=== PATIENT | male | born 1970 | race Caucasian/White ===

== ENCOUNTER 2016-10-26 13:08 | Emergency (ER) | payer OTHER ==
[~2016-10-26] VITALS: Ht 175.3 cm; Wt 87.8 kg
[~2016-10-26 13:08] MED LIST: MEDR4PAK3 PO
[2016-10-26 13:12] VITALS: BP 120/88; PULSE 94; RESP 16; TEMP 98.1; O2SAT 96
[2016-10-26] MEDS ORDERED: CIPR-9 PO (13:51)
[2016-10-26] MEDS ORDERED: VENTAER INH (13:51)
--- NOTE | 2016-10-26 13:59 | PD ---
HPI Chief Complaint: Abdominal Pain Time Seen by Provider: 13:35 Travel History International Travel<30 days: No Contact w/Intl Traveler<30days: No Traveled to known affect area: No History of Present Illness HPI This patient complains of diarrhea. Started 10 days ago. When it started he did have low-grade temp and it was 100.4 when he checked it. He also had a bit of bloody mucus with his stool. Both the blood and stool and fever have resolved and for the last 7 days he's had liquid runny diarrhea. He is not having abdominal pain of significance. He does have occasional bloating or gassy sensations. No nausea or vomiting. He is eating well. Symptom severity is moderate. PFSH Past Medical History Hx Anticoagulant Therapy: No Diabetes: No Diminished Hearing: No Kidney Stones: Yes Tetanus Vaccination: Unknown Influenza Vaccination: No Past Surgical History AICD: No Joint Replacement: No Pacemaker: No Other Surgery: Yes (LITHOTRIPSY, RIGHT HAND SX) Social History Alcohol Use: Yes (BEER/WINE OCCASIONALLY) Tobacco Use: Yes (< 1/4 PPD) Substance Use: No Allergies-Medications (Allergen,Severity, Reaction): Coded Allergies: No Known Allergies (Verified , 10/26/16) Reported Meds & Prescriptions Reported Meds & Active Scripts Active Ventolin Hfa 18 GM Inh (Albuterol Sulfate) 90 Mcg/Act Aer 1 Puff INH Q4H PRN Cipro (Ciprofloxacin HCl) 500 Mg Tab 500 Mg PO BID Review of Systems General / Constitutional: No: Fever HENT: No: Headaches Cardiovascular: No: Chest Pain or Discomfort Respiratory: No: Cough Gastrointestinal: Positive: Diarrhea, No: Nausea Physical Exam Narrative GENERAL: Well-nourished, well-developed patient in no apparent distress. SKIN: Warm and dry. HEAD: Atraumatic. Normocephalic. EYES: Pupils equal and round. No scleral icterus. No injection or drainage. ENT: No nasal bleeding or discharge. Mucous membranes pink and moist. NECK: Trachea midline. No JVD. CARDIOVASCULAR: Regular rate and rhythm. No murmur appreciated. RESPIRATORY: No accessory muscle use. Clear to auscultation. Breath sounds equal bilaterally. GASTROINTESTINAL: Abdomen soft, non-tender, nondistended. Hepatic and splenic margins not palpable. MUSCULOSKELETAL: No obvious deformities. No clubbing. No cyanosis. No edema. NEUROLOGICAL: Awake and alert. No obvious cranial nerve deficits. Motor grossly within normal limits. Normal speech. PSYCHIATRIC: Appropriate mood and affect; insight and judgment normal. Data Data Last Documented VS Vital Signs Date Time Temp Pulse Resp B/P Pulse Ox O2 Delivery O2 Flow Rate FiO2 10/26/16 13:12 98.1 94 16 120/88 96 MDM Medical Decision Making Medical Screen Exam Complete: Yes Emergency Medical Condition: Yes Medical Record Reviewed: Yes Differential Diagnosis Infectious colitis, inflammatory colitis, flu syndrome, food poisoning Narrative Course I have reviewed the patient's electronic medical record. Patient has a normal exam and normal vital signs. He looks well-hydrated and euvolemic His abdomen is soft and benign and nontender. We discussed options. He would like to try something for treatment. We'll give him empirically one week of Cipro. He asked for refill of albuterol inhaler which I have provided. Recommend GI follow-up given the length, 10 days,of this event Diagnosis Primary Impression: Diarrhea of presumed infectious origin Additional Instructions: The patient was advised to follow up with their physician and return if they worsen. Med/Other Pt SpecificInfo: Prescription(s) given Scripts Albuterol 18 GM Inh (Ventolin Hfa 18 GM Inh)90 Mcg/Act Aer1 Puff INH Q4H PRN ( SHORTNESS OF BREATH) #1 INHALER Ref 0 Prov:Dashawn Pressley MD 10/26/16 Ciprofloxacin (Cipro)500 Mg [id number] Mg PO BID #14 TAB Ref 0 Prov:Dashawn Pressley MD 10/26/16 Disposition: 01 DISCHARGE HOME Condition: Stable Dashawn Pressley MD Oct 26, 2016 13:59
== END 2016-10-26 14:24 | disposition home or self-care (01) ==
LOC: PHED 13:08
DX: R19.7 Diarrhea, unspecified (principal); Z87.442 Personal history of urinary calculi; F17.210 Nicotine dependence, cigarettes, uncomplicated
CPT/HCPCS: 99283

== ENCOUNTER 2017-05-03 12:59 | Inpatient (IN) | payer OTHER ==
[~2017-05-03] VITALS: Ht 175.3 cm; Wt 90.7 kg
[~2017-05-03 12:59] MED LIST changes: +CIPR-9 PO; -MEDR4PAK3 PO; +VENTAER INH
[2017-05-03 13:01] VITALS: BP 146/82; PULSE 113; RESP 20; TEMP 99; O2SAT 97
[2017-05-03] MEDS ORDERED: BACT800T5 PO (13:52)
[2017-05-03] MEDS ORDERED: PRED50 PO (13:52)
[2017-05-03] MEDS ORDERED: PIPERACIL-TAZO 3.375 GM PREMIX 50 ML IV ONE (14:00)
[2017-05-03] MEDS ORDERED: VANCOMYCIN INJ 1,000 MG in SODIUM CHLOR 0.9% 250 ML INJ 250 ML IV ONE (14:00)
[2017-05-03] MEDS ORDERED: ONDANSETRON HCL 4 MG/2 ML VIAL IV PUSH ONE (14:00)
[2017-05-03] MEDS ORDERED: MORPHINE SULFATE 4 MG/ML INJ IV PUSH ONE (14:00)
--- NOTE | 2017-05-03 14:14 | PD ---
HPI Chief Complaint: Lump, Cyst, Hernia Time Seen by Provider: 13:43 Travel History International Travel<30 days: No Contact w/Intl Traveler<30days: No Traveled to known affect area: No History of Present Illness HPI 46-year-old male complains of painful lump on the right buttock. Patient states that it started with a small painful lumps in the right buttock 6 days ago. Patient states that he has increasing pain and swelling since then. Patient states that the pain and swelling spreading to the scrotum. Patient states that he has intermittent fever chills for the past week. Temperature was up to 101 at home. Patient had some leftover antibiotic Bactrim that he's had been taking it for the past 3 days. Patient also was taking prednisone also. Patient has history of asthma and uses albuterol once in a while. Patient denies any other medical problem. On a scale of 1-10 the pain is a 10. PFSH Past Medical History Hx Anticoagulant Therapy: No Diabetes: No Diminished Hearing: No Kidney Stones: Yes Past Surgical History AICD: No Joint Replacement: No Pacemaker: No Other Surgery: Yes (LITHOTRIPSY, RIGHT HAND SX) Social History Alcohol Use: Yes (BEER/WINE OCCASIONALLY) Tobacco Use: Yes (< 1/4 PPD) Substance Use: No Allergies-Medications (Allergen,Severity, Reaction): Coded Allergies: No Known Allergies (Verified , 05/03/17) Reported Meds & Prescriptions Reported Meds & Active Scripts Active Ventolin Hfa 18 GM Inh (Albuterol Sulfate) 90 Mcg/Act Aer 1 Puff INH Q4H PRN Reported Prednisone 50 Mg Tab 60 Mg PO DAILY Bactrim DS (Sulfamethoxazole-Trimethoprim) 800-160 Mg Tab 1 Tab PO TID Review of Systems General / Constitutional: Positive: Fever, Chills Eyes: No: Visual changes HENT: No: Headaches Cardiovascular: No: Chest Pain or Discomfort Respiratory: No: Shortness of Breath Gastrointestinal: No: Abdominal Pain Genitourinary: No: Dysuria Musculoskeletal: No: Pain Skin: No Rash Neurologic: No: Weakness Psychiatric: No: Depression Endocrine: No: Polydipsia Hematologic/Lymphatic: No: Easy Bruising Physical Exam Narrative GENERAL: Well-nourished, well-developed patient. SKIN: Focused skin assessment warm/dry. HEAD: Normocephalic. EYES: No scleral icterus. No injection or drainage. NECK: Supple, trachea midline. No JVD or lymphadenopathy. CARDIOVASCULAR: Regular rate and rhythm without murmurs, gallops, or rubs. RESPIRATORY: Breath sounds equal bilaterally. No accessory muscle use. GASTROINTESTINAL: Abdomen soft, non-tender, nondistended. MUSCULOSKELETAL: No cyanosis, or edema. BACK: Nontender without obvious deformity. No CVA tenderness. Patient has an area redness swelling induration left buttock area approaching the rectum area and involving the perineal area. No discharge noted. The scrotum is without swelling or tenderness. No tenderness palpation the testicle. Data Data Last Documented VS Vital Signs Date Time Temp Pulse Resp B/P Pulse Ox O2 Delivery O2 Flow Rate FiO2 05/03/17 16:19 114 18 143/75 97 Room Air 05/03/17 13:01 99.0 Orders Electrocardiogram (05/03/17 13:49) Complete Blood Count With Diff (05/03/17 13:49) Comprehensive Metabolic Panel (05/03/17 13:49) Prothrombin Time / Inr (Pt) (05/03/17 13:49) Act Partial Throm Time (Ptt) (05/03/17 13:49) Blood Culture (05/03/17 13:49) Urinalysis - C+S If Indicated (05/03/17 13:49) Chest, Single Ap (05/03/17 13:49) Iv Access Insert/Monitor (05/03/17 13:49) Ecg Monitoring (05/03/17 13:49) Oximetry (05/03/17 13:49) Sodium Chlor 0.9% 1000 Ml Inj (Ns 1000 M (05/03/17 14:00) Piperacil-Tazo 3.375 Gm Premix (Zosyn 3. (05/03/17 14:00) Vancomycin Inj (Vancomycin Inj) (05/03/17 14:00) Ct Pelvis W Iv Contrast(Rout) (05/03/17 ) Morphine Inj (Morphine Inj) (05/03/17 14:00) Ondansetron Inj (Zofran Inj) (05/03/17 14:00) Hydromorphone Pf Inj (Dilaudid Pf Inj) (05/03/17 16:00) Iohexol 350 Inj (Omnipaque 350 Inj) (05/03/17 16:16) Labs Laboratory Tests Test 05/03/17 14:30 White Blood Count 16.2 TH/MM3 Red Blood Count 4.75 MIL/MM3 Hemoglobin 14.1 GM/DL Hematocrit 41.9 % Mean Corpuscular Volume 88.2 FL Mean Corpuscular Hemoglobin 29.8 PG Mean Corpuscular Hemoglobin 33.7 % Concent Red Cell Distribution Width 12.6 % Platelet Count 297 TH/MM3 Mean Platelet Volume 7.9 FL Neutrophils (%) (Auto) 74.7 % Lymphocytes (%) (Auto) 12.1 % Monocytes (%) (Auto) 12.1 % Eosinophils (%) (Auto) 0.8 % Basophils (%) (Auto) 0.3 % Neutrophils # (Auto) 12.1 TH/MM3 Lymphocytes # (Auto) 2.0 TH/MM3 Monocytes # (Auto) 2.0 TH/MM3 Eosinophils # (Auto) 0.1 TH/MM3 Basophils # (Auto) 0.0 TH/MM3 CBC Comment DIFF FINAL Differential Comment Prothrombin Time 10.3 SEC Prothromb Time International 0.9 RATIO Ratio Activated Partial 28.3 SEC Thromboplast Time Sodium Level 139 MEQ/L Potassium Level 3.6 MEQ/L Chloride Level 105 MEQ/L Carbon Dioxide Level 25.9 MEQ/L Anion Gap 8 MEQ/L Blood Urea Nitrogen 15 MG/DL Creatinine 1.30 MG/DL Estimat Glomerular Filtration 60 ML/MIN Rate Random Glucose 85 MG/DL Calcium Level 9.6 MG/DL Total Bilirubin 0.4 MG/DL Aspartate Amino Transf 40 U/L (AST/SGOT) Alanine Aminotransferase 77 U/L (ALT/SGPT) Alkaline Phosphatase 105 U/L Total Protein 7.9 GM/DL Albumin 3.6 GM/DL [facility] Medical Decision Making Medical Screen Exam Complete: Yes Emergency Medical Condition: Yes Interpretation(s) Last Impressions Chest X-Ray 05/03/17 1349 Signed Impressions: Service Date/Time: Wednesday, May 03, 2017 13:58 - CONCLUSION: 1. No infiltrate. 2. Small nodule right upper lung. CT chest recommended as outpatient. Ethan Murry MD Pelvis CT 05/03/17 0000 Signed Impressions: Service Date/Time: Wednesday, May 03, 2017 15:40 - CONCLUSION: Abnormal inflammatory changes and skin thickening along the right gluteal cleft and in the adjacent subcutaneous fat of the perineum. No drainable fluid collection is present. The inflammatory changes extend towards the anus but no definite connection is identified. Chepe Cormier MD 1620 p.m. CBC WBC 16.2. 74 neutrophil. CMP within normal limit. Differential Diagnosis Differential diagnosis including cellulitis, abscess, Rigo gangrene. Narrative Course 46-year-old male with redness swelling tenderness left buttock with approaching peroneal area. Normal saline solution 1 25 cc an hour. Vancomycin 1 g IV. Zosyn 3.375 g IV given. Diagnosis Primary Impression: Cellulitis Qualified Code: L03.317 - Cellulitis of buttock Admitting Information Admitting Physician Requests: Admit Facundo Ruano MD May 03, 2017 14:14 Facundo Ruano MD May 03, 2017 14:14
--- NOTE | 2017-05-03 14:32 | RADRPT ---
EXAM DATE/TIME: 05/03/2017 13:58 [facility] COMPARISON: No previous studies available for comparison. INDICATIONS : Fever, abscess on buttock x 1 week. MEDICAL HISTORY : None. SURGICAL HISTORY : None. ENCOUNTER: Initial ACUITY: 3 days PAIN SCORE: 0/10 LOCATION: Bilateral chest FINDINGS: A single view of the chest demonstrates the lungs to be symmetrically aerated without evidence of mas s, infiltrate or effusion. Small nodule right upper lung. The cardiomediastinal contours are unremark able. Osseous structures are intact. CONCLUSION: 1. No infiltrate. 2. Small nodule right upper lung. CT chest recommended as outpatient. Ethan Murry MD on May 03, 2017 at 14:29 Board Certified Radiologist. This report was verified electronically.
[2017-05-03] MEDS: SODIUM CHLOR 0.9% 1000 ML INJ 1,000 ML IV SCH (14:36)
[2017-05-03 15:08] LABS: APTT (PATIENT) 28.3 SEC (24.3-30.1); INTERNATIONAL NORMALIZED RATIO 0.9 RATIO; PROTHROMBIN TIME - PATIENT 10.3 SEC (9.8-11.6)
[2017-05-03 15:15] VITALS: O2SAT 98
[2017-05-03 15:19] LABS: AUTOMATED NEUTROPHIL # 12.1 TH/MM3 (1.8-7.7); BASOPHIL % 0.3 % (0.0-2.0); EOSINOPHIL # 0.1 TH/MM3 (0-0.4); EOSINOPHIL % 0.8 % (0.0-4.0); HEMATOCRIT 41.9 % (39.0-51.0); LYMPH % 12.1 % (9.0-44.0); MEAN CELL VOLUME 88.2 FL (80.0-100.0); MEAN CORPUSCULAR HEMOGLOBIN 29.8 PG (27.0-34.0); MEAN CORPUSCULAR HGB CONC 33.7 % (32.0-36.0); MONO % 12.1 % (0.0-8.0); NEUT % 74.7 % (16.0-70.0); PLATELET COUNT 297 TH/MM3 (150-450); RED BLOOD COUNT 4.75 MIL/MM3 (4.50-5.90); RED CELL DISTRIBUTION WIDTH 12.6 % (11.6-17.2); WHITE BLOOD COUNT 16.2 TH/MM3 (4.0-11.0)
[2017-05-03 15:20] LABS: HEMO FLAGS DIFF FINAL
[2017-05-03 15:31] LABS: CHLORIDE 105 MEQ/L (98-107); POTASSIUM 3.6 MEQ/L (3.5-5.1); SODIUM (NA) 139 MEQ/L (136-145)
[2017-05-03 15:35] LABS: ANION GAP 8 MEQ/L (5-15); BICARBONATE 25.9 MEQ/L (21.0-32.0); BLOOD UREA NITROGEN 15 MG/DL (7-18)
[2017-05-03 15:38] LABS: ALT (GPT) 77 U/L (12-78); AST (GOT) 40 U/L (15-37); GLOMERULAR FILTRATION RATE 60 ML/MIN (>89)
[2017-05-03 15:40] LABS: TOTAL BILIRUBIN ADULT 0.4 MG/DL (0.2-1.0)
[2017-05-03 15:41] LABS: ALKALINE PHOSPHATASE 105 U/L (45-117)
[2017-05-03] MEDS ORDERED: HYDROmorphone HCL PF 1 MG/ML VIAL IV PUSH ONE (16:00)
--- NOTE | 2017-05-03 16:10 | RADRPT ---
EXAM DATE/TIME: 05/03/2017 15:40 [facility] COMPARISON: No previous studies available for comparison. INDICATIONS : Pain and swelling right buttock. IV CONTRAST: 85 cc Omnipaque 350 (iohexol) IV ORAL CONTRAST: No oral contrast ingested. RADIATION DOSE: 11.95 CTDIvol (mGy) MEDICAL HISTORY : Renal calculi. Asthma. SURGICAL HISTORY : Lithotripsy. ENCOUNTER: Initial ACUITY: 4 - 6 days PAIN SCALE: 10/10 LOCATION: Right buttock TECHNIQUE: Volumetric scanning of the pelvis was performed. Using automated exposure control and adjustment of t he mA and/or kV according to patient size, radiation dose was kept as low as reasonably achievable to obtain optimal diagnostic quality images. DICOM format image data is available electronically for review and comparison. FINDINGS: BOWEL/MESENTERY: The visualized small and large bowel demonstrate no acute abnormality. There is no free fluid. BLADDER: There is no wall thickening or mass. RETROPERITONEUM: There is no aneurysm or lymphadenopathy. REPRODUCTIVE: Within normal limits. INGUINAL: There is no lymphadenopathy or hernia. MUSCULOSKELETAL: No acute abnormality is identified. OTHER: There are inflammatory changes along the right medial gluteal cleft and in the adjacent subcutaneous fat extending anteriorly along the perineum it extends near the anus but no definite connection is se en. Ischiorectal fossa fat is within normal limits. No fluid collection is identified. CONCLUSION: Abnormal inflammatory changes and skin thickening along the right gluteal cleft and in the adjacent s ubcutaneous fat of the perineum. No drainable fluid collection is present. The inflammatory changes e xtend towards the anus but no definite connection is identified. Chepe Cormier MD on May 03, 2017 at 16:05 Board Certified Radiologist. This report was verified electronically.
[2017-05-03] MEDS ORDERED: IOHEXOL 350 MG/ML 10 ML VIAL (for RAD DIAG) IV ONE (16:16)
[2017-05-03 16:19] VITALS: BP 143/75; PULSE 114; RESP 18; O2SAT 97
[2017-05-03] MEDS ORDERED: ACETAMINOPHEN 325 MG TAB PO PRN (16:45)
[2017-05-03] MEDS ORDERED: ONDANSETRON HCL 4 MG/2 ML VIAL IV PUSH PRN (16:45)
[2017-05-03 16:46] VITALS: BP 142/86; PULSE 114; RESP 18; TEMP 100.2; O2SAT 94
--- NOTE | 2017-05-03 16:57 | HHI.HP ---
[facility] Physician Coleman Xie M.D. Admission Diagnosis right buttock cellulitis Diagnoses: (1) Cellulitis of buttock, right Diagnosis: Principal Chief Complaint: pain and swelling of the right buttock Travel History International Travel<30 Days: No Contact w/Intl Traveler <30 Da: No Traveled to Known Affected Are: No Sepsis Criteria SIRS Criteria (2 or more): Heart rate over 90, WBC > 97235, < 4000 or > 10% bands Sepsis Criteria (SIRS+source): Infect source susp/known Criteria Outcome: Meets sepsis criteria History of Present Illness patient is a 46 y/o male with no significant past medical history other than occasional folliculitis presented to ER with pain and swelling of the right buttock. he says that it started a small bump few days ago. then it gradually started to get worse. he says that he had ' some antibiotic left over' that he he took for a couple of days with no significant improvement. he reports a fever of 101 at home along with some chills and sweats. he says that he tried to squeeze the area and ' he got a little of blood and whitish fluid out' a couple of days ago. the pain to the area is moderate in intensity but improved with the pain medications that he received in ER. Review of Systems Constitutional: COMPLAINS OF: Fever, Chills, Night Sweats, DENIES: Weight loss Eyes: DENIES: Blurred vision, Diplopia, Vision loss, Double Vision Ears, nose, mouth, throat: DENIES: Tinnitus, Vertigo, Throat pain, Epistaxis Respiratory: DENIES: Apneas, Cough, Snoring, Wheezing, Hemoptysis, Sputum production, Shortness of breath Cardiovascular: DENIES: Chest pain, Palpitations, Syncope, Dyspnea on Exertion , PND, Lower Extremity Edema, Orthopnea, Claudication Gastrointestinal: DENIES: Abdominal pain, Black stools, Bloody stools, Constipation, Diarrhea, Nausea, Vomiting, Difficulty Swallowing, Anorexia Genitourinary: DENIES: Urinary frequency, Urgency, Hematuria, Dysuria Musculoskeletal: DENIES: Joint pain, Muscle aches, Stiffness, Joint Swelling Integumentary: DENIES: Rash Neurologic: DENIES: Abnormal gait, Headache, Localized weakness, Paresthesias, Seizures, Speech Problems, Tremor, Poor Balance Psychiatric: DENIES: Anxiety, Confusion, Mood changes, Depression, Hallucinations, Agitation, Suicidal Ideation, Homicidal Ideation, Delusions redness and swelling of the right buttock. Past Family Social History Past Medical History not significant. Past Surgical History surgery on the right hand. Reported Medications none reported as a regular basis. Allergies: Coded Allergies: No Known Allergies (Verified , 05/03/17) Active Ordered Medications Current Medications Sodium Chloride 1,000 ml @ 125 mls/hr Q8H IV Last administered on 05/03/17 14 :36; Start 05/03/17 at 14:00 Piperacillin Sod/ Tazobactam Sod 50 ml @ 100 mls/hr ONCE ONCE IV Last administered on 05/03/17 14:37; Start 05/03/17 at 14:00; Stop 05/03/17 at 14:29 ; Status DC Vancomycin HCl/ Sodium Chloride (Vancomycin Inj/ NS 250 ml Inj) 250 ml @ 250 mls/hr ONCE ONCE IV ; Start 05/03/17 at 14:00; Stop 05/03/17 at 14:59; Status DC Morphine Sulfate (Morphine Inj) 2 mg ONCE ONCE IV PUSH Last administered on 14:37; Start 05/03/17 at 14:00; Stop 05/03/17 at 14:01; Status DC Ondansetron HCl (Zofran Inj) 4 mg ONCE ONCE IV PUSH Last administered on 14:36; Start 05/03/17 at 14:00; Stop 05/03/17 at 14:01; Status DC Hydromorphone HCl (Dilaudid Pf Inj) 1 mg ONCE ONCE IV PUSH Last administered on 05/03/17 16:16; Start 05/03/17 at 16:00; Stop 05/03/17 at 16:01; Status DC Iohexol (Omnipaque 350 Inj) 85 ml STK-MED ONCE IV Last administered on 16:16; Start 05/03/17 at 16:16; Stop 05/03/17 at 16:17; Status DC Family History not relevant to this admission. Social History smokes and drinks occasionally. Physical Exam Vital Signs Vital Signs Date Time Temp Pulse Resp B/P Pulse Ox O2 Delivery O2 Flow Rate FiO2 05/03/17 16:19 114 18 143/75 97 Room Air 05/03/17 15:15 98 Room Air 05/03/17 13:01 99.0 113 20 146/82 97 Physical Exam GENERAL: This is a well-nourished, well-developed patient, in no apparent distress. SKIN: redness/swelling noted over the right buttock with some extension to the right medical thigh HEAD: Atraumatic. Normocephalic. No temporal or scalp tenderness. EYES: Pupils equal round and reactive. Extraocular motions intact. No scleral icterus. No injection or drainage. ENT: Nose without bleeding, purulent drainage or septal hematoma. Throat without erythema, tonsillar hypertrophy or exudate. Uvula midline. Airway patent. NECK: Trachea midline. No JVD or lymphadenopathy. Supple, nontender, no meningeal signs. CARDIOVASCULAR: Regular rate and rhythm without murmurs, gallops, or rubs. RESPIRATORY: Clear to auscultation. Breath sounds equal bilaterally. No wheezes , rales, or rhonchi. GASTROINTESTINAL: Abdomen soft, non-tender, nondistended. No hepato-splenomegaly , or palpable masses. No guarding. MUSCULOSKELETAL: Extremities with no pedal edema. NEUROLOGICAL: Awake and alert. Cranial nerves II through XII intact. Motor and sensory grossly within normal limits. Five out of 5 muscle strength in all muscle groups. Normal speech. Laboratory Laboratory Tests Test 05/03/17 14:30 White Blood Count 16.2 Red Blood Count 4.75 Hemoglobin 14.1 Hematocrit 41.9 Mean Corpuscular Volume 88.2 Mean Corpuscular Hemoglobin 29.8 Mean Corpuscular Hemoglobin 33.7 Concent Red Cell Distribution Width 12.6 Platelet Count 297 Mean Platelet Volume 7.9 Neutrophils (%) (Auto) 74.7 Lymphocytes (%) (Auto) 12.1 Monocytes (%) (Auto) 12.1 Eosinophils (%) (Auto) 0.8 Basophils (%) (Auto) 0.3 Neutrophils # (Auto) 12.1 Lymphocytes # (Auto) 2.0 Monocytes # (Auto) 2.0 Eosinophils # (Auto) 0.1 Basophils # (Auto) 0.0 CBC Comment DIFF FINAL Differential Comment Prothrombin Time 10.3 Prothromb Time International 0.9 Ratio Activated Partial 28.3 Thromboplast Time Sodium Level 139 Potassium Level 3.6 Chloride Level 105 Carbon Dioxide Level 25.9 Anion Gap 8 Blood Urea Nitrogen 15 Creatinine 1.30 Estimat Glomerular Filtration 60 Rate Random Glucose 85 Calcium Level 9.6 Total Bilirubin 0.4 Aspartate Amino Transf 40 (AST/SGOT) Alanine Aminotransferase 77 (ALT/SGPT) Alkaline Phosphatase 105 Total Protein 7.9 Albumin 3.6 Date/Time Procedure Status Source Growth 05/03/17 14:30 Aerobic Blood Culture Received Blood Peripheral Pending 05/03/17 14:30 Anaerobic Blood Culture Received Blood Peripheral Pending Result Diagram: 05/03/17 1430 05/03/17 1430 Imaging Last Impressions Chest X-Ray 05/03/17 1349 Signed Impressions: Service Date/Time: Wednesday, May 03, 2017 13:58 - CONCLUSION: 1. No infiltrate. 2. Small nodule right upper lung. CT chest recommended as outpatient. Ethan Murry MD Pelvis CT 05/03/17 0000 Signed Impressions: Service Date/Time: Wednesday, May 03, 2017 15:40 - CONCLUSION: Abnormal inflammatory changes and skin thickening along the right gluteal cleft and in the adjacent subcutaneous fat of the perineum. No drainable fluid collection is present. The inflammatory changes extend towards the anus but no definite connection is identified. Chepe Cormier MD Assessment and Plan Assessment and Plan A/P -sepsis due to right buttock cellulitis/abscess continue with broad spectrum IV antibiotics- follow the blood cultures- continue with pain control- consult general surgery -pulmonary nodule- f/u as outpatient- d/w the patient. Discussed Condition With ER physician and the patient. Physician Certification 2 Midnight Certification Type: Admission for Inpatient Services Order for Inpatient Services The services are ordered in accordance with Medicare regulations or non- Medicare payer requirements, as applicable. In the case of services not specified as inpatient-only, they are appropriately provided as inpatient services in accordance with the 2-midnight benchmark. Estimated LOS (days): 2 days is the estimated time the patient will need to remain in the hospital, assuming treatment plan goals are met and no additional complications. Post-Hospital Plan: Home Colby Brenner MD May 03, 2017 16:57
[2017-05-03] MEDS ORDERED: Vancomycin Consult Pharmacy 1 EA OTHER SCH (17:00)
[2017-05-03 17:51] LABS: BLOOD, URINE TRACE (NEG); GLUCOSE,URINE NEG (NEG); KETONE, URINE NEG (NEG); NITRITE,URINE NEG (NEG); PH, URINE 6.5 (5.0-8.5)
[2017-05-03 18:07] VITALS: BP 138/86; PULSE 77; RESP 18; TEMP 97.8; O2SAT 99
[2017-05-03 18:12] LABS: URINE COLOR YELLOW (YELLW/STRAW)
[2017-05-03 18:13] LABS: COMMENT (UR) CULT NOT INDICATED; CULTURE IF INDICATED CULT NOT INDICATED; MUCUS URINE FEW /lpf (OCC); RBC, URINE 0-3 /hpf (0-3); SQUAMOUS EPITHELIAL CELL URINE 0-5 /hpf (0-5); WBC, URINE 0-2 /hpf (0-5)
[2017-05-03] MEDS: ACETAMINOPHEN/HYDROcodone 325 MG/5 MG TAB PO PRN ×2 (18:25→22:04)
--- NOTE | 2017-05-03 19:56 | MB ---
cc: SHANKAR AUGUST M.D., JOSHUA R. M.D. DATE OF CONSULTATION 05/03/2017 CONSULTATION Cellulitis in the gluteal region. HISTORY This is a pleasant 46-year-old gentleman who has had about a 3 to 4 day history of some cellulitic response in the gluteal region. He was given some Bactrim and failed outpatient therapy. He came into the emergency room for evaluation. The CT scan was done which showed cellulitic response. No fluid collection. No abscess. Medical team wanted surgery on standby just in case he developed an abscess. PAST MEDICAL HISTORY Significant for kidney stones in the past. He had some hand surgery. No abdominal surgery. He had a colonoscopy recently by Dr. Adams. No cardiac or respiratory problems. He does have problems with hidradenitis more on the right axillary region than the left. He has been treated numerous times for this with antibiotics. ALLERGIES NO KNOWN DRUG ALLERGIES. MEDICATIONS Outpatient just include: 1. Bactrim. 2. He was given some Ventolin inhaler. 3. He was given a prednisone taper as an outpatient as well. PHYSICAL EXAMINATION GENERAL: He is an alert, pleasant gentleman sitting comfortably in the bed with an IV in place. NECK: Supple. CHEST: Clear. HEART: Regular rate. ABDOMEN: Thin, soft. AXILLARY: He has scars in both his axillary regions, more on the right than the left consistent with hidradenitis but not too bad. EXTREMITIES: Moves extremities well. His upper extremities limited from his II. His right gluteal area is cellulitic with a slight tenderness. I do not feel fluctuance. Does not appear to go into the scrotum, is more of the medial aspect of the gluteal region. The most tenderness is quite away from the rectum. This does not appear to be a perirectal abscess. LABORATORY DATA He has complete metabolic profile, is all normal. White count of 16, H&H of 14, 41. Coags normal. Urinalysis essentially clear. IMAGING STUDIES Chest x-ray showed a nodule. He said he had a chest x-ray as an outpatient previously for his hand surgery. Will see if we can have these compared. Radiologist recommended a CT scan as an outpatient. He will follow up with Dr. Xie with this. CT abdomen and pelvis shows inflammatory changes with skin thickening right gluteal area without any fluid present. ASSESSMENT A 46-year-old gentleman with history of hidradenitis, now has some inflammatory changes in the gluteal region. No evidence of abscess at this time. PLAN At this time I agree with the antibiotic therapy. Will follow him clinically at this point. He just recently had a colonoscopy. Lung nodule needs to be followed up as an outpatient. He says he will contact his primary care, Dr. Xie. Shankar August MD JDB/EO /6:26 PM /7:46 PM
[2017-05-03 20:00] VITALS: BP 130/74; PULSE 102; RESP 20; TEMP 99; O2SAT 96
[2017-05-03] MEDS: PIPERACIL-TAZO 3.375 GM PREMIX 50 ML IV SCH (22:04)
[2017-05-04] VITALS: BP 120/69; PULSE 96; RESP 20; TEMP 99.1; O2SAT 96
[2017-05-04] MEDS: PIPERACIL-TAZO 3.375 GM PREMIX 50 ML IV SCH ×4 (01:50→20:11)
[2017-05-04] MEDS: SODIUM CHLOR 0.9% 1000 ML INJ 1,000 ML IV SCH ×4 (01:50→22:42)
[2017-05-04] MEDS: ACETAMINOPHEN/HYDROcodone 325 MG/5 MG TAB PO PRN ×5 (03:56→20:11)
[2017-05-04] MEDS: VANCOMYCIN INJ 1,500 MG in SODIUM CHLORID 0.9% 500 ML INJ 500 ML IV SCH ×2 (03:57→22:50)
[2017-05-04 04:00] VITALS: BP 121/73; PULSE 100; RESP 20; TEMP 99.6; O2SAT 96
[2017-05-04 07:05] LABS: AUTOMATED NEUTROPHIL # 11.4 TH/MM3 (1.8-7.7); BASOPHIL # 0.1 TH/MM3 (0-0.2); BASOPHIL % 0.5 % (0.0-2.0); EOSINOPHIL # 0.3 TH/MM3 (0-0.4); EOSINOPHIL % 1.6 % (0.0-4.0); LYMPH % 12.3 % (9.0-44.0); MEAN CELL VOLUME 88.3 FL (80.0-100.0); MEAN CORPUSCULAR HEMOGLOBIN 30.7 PG (27.0-34.0); MEAN CORPUSCULAR HGB CONC 34.8 % (32.0-36.0); MONO % 13.4 % (0.0-8.0); NEUT % 72.2 % (16.0-70.0); PLATELET COUNT 238 TH/MM3 (150-450); RED BLOOD COUNT 4.08 MIL/MM3 (4.50-5.90); RED CELL DISTRIBUTION WIDTH 12.2 % (11.6-17.2); WHITE BLOOD COUNT 15.9 TH/MM3 (4.0-11.0)
[2017-05-04 07:11] LABS: HEMO FLAGS DIFF FINAL
[2017-05-04 08:00] VITALS: BP 119/87; PULSE 90; RESP 18; TEMP 98.2; O2SAT 96
--- NOTE | 2017-05-04 09:56 | HHI.PR ---
Subjective Remarks f/u; cellulitis/abscess of the right buttock in no acute distress, but uncomfortable with the pain. T max 100.2. Objective Vitals Vital Signs Date Time Temp Pulse Resp B/P Pulse Ox O2 Delivery O2 Flow Rate FiO2 05/04/17 08:00 98.2 90 18 119/87 96 05/04/17 04:00 99.6 100 20 121/73 96 05/04/17 00:00 99.1 96 20 120/69 96 05/03/17 20:00 99.0 102 20 130/74 96 05/03/17 19:25 18 05/03/17 18:07 97.8 77 18 138/86 99 05/03/17 16:46 100.2 114 18 142/86 94 Room Air 05/03/17 16:19 114 18 143/75 97 Room Air 05/03/17 15:15 98 Room Air 05/03/17 13:01 99.0 113 20 146/82 97 I/O 05/03/17 05/03/17 05/03/17 05/04/17 05/04/17 05/04/17 07:00 15:00 23:00 07:00 15:00 23:00 Intake Total 1900 ml 480 ml Output Total 700 ml 800 ml Balance 1200 ml -320 ml Intake Oral 1650 ml 480 ml IV Total 250 ml Output Urine Total 700 ml 800 ml # Voids 3 3 # Bowel Movements 0 0 Result Diagram: 05/04/17 0636 05/03/17 1430 Imaging Last Impressions Chest X-Ray 05/03/17 1349 Signed Impressions: Service Date/Time: Wednesday, May 03, 2017 13:58 - CONCLUSION: 1. No infiltrate. 2. Small nodule right upper lung. CT chest recommended as outpatient. Ethan Murry MD Pelvis CT 05/03/17 0000 Signed Impressions: Service Date/Time: Wednesday, May 03, 2017 15:40 - CONCLUSION: Abnormal inflammatory changes and skin thickening along the right gluteal cleft and in the adjacent subcutaneous fat of the perineum. No drainable fluid collection is present. The inflammatory changes extend towards the anus but no definite connection is identified. Chepe Cormier MD Objective Remarks GENERAL: This is a well-nourished, well-developed patient, in no apparent distress. CARDIOVASCULAR: Regular rate and regular rhythm without murmurs, gallops, or rubs. RESPIRATORY: Clear to auscultation. Breath sounds equal bilaterally. No wheezes , rales, or rhonchi. GASTROINTESTINAL: Abdomen soft, non-tender, nondistended. Normal, active bowel sounds MUSCULOSKELETAL: Extremities without clubbing, cyanosis, or edema. NEURO: Alert & Oriented x4 to person, place, time, situation. Moves all ext x4 skin; erythema/ tenderness with minimal oozing - right gluteal region Medications and IVs Current Medications Sodium Chloride 1,000 ml @ 125 mls/hr Q8H IV Last administered on 05/04/17 08 :41; Start 05/03/17 at 14:00 Piperacillin Sod/ Tazobactam Sod 50 ml @ 100 mls/hr ONCE ONCE IV Last administered on 05/03/17 14:37; Start 05/03/17 at 14:00; Stop 05/03/17 at 14:29 ; Status DC Vancomycin HCl/ Sodium Chloride (Vancomycin Inj/ NS 250 ml Inj) 250 ml @ 250 mls/hr ONCE ONCE IV Last administered on 05/03/17 16:44; Start 05/03/17 at 14 :00; Stop 05/03/17 at 14:59; Status DC Morphine Sulfate (Morphine Inj) 2 mg ONCE ONCE IV PUSH Last administered on 14:37; Start 05/03/17 at 14:00; Stop 05/03/17 at 14:01; Status DC Ondansetron HCl (Zofran Inj) 4 mg ONCE ONCE IV PUSH Last administered on 14:36; Start 05/03/17 at 14:00; Stop 05/03/17 at 14:01; Status DC Hydromorphone HCl (Dilaudid Pf Inj) 1 mg ONCE ONCE IV PUSH Last administered on 05/03/17 16:16; Start 05/03/17 at 16:00; Stop 05/03/17 at 16:01; Status DC Iohexol 85 ml 85 ml STK-MED ONCE IV Last administered on 05/03/17 16:16; Start 05/03/17 at 16:16; Stop 05/03/17 at 16:17; Status DC Pharmacy Profile Note 0 ml @ 0 mls/hr UNSCH OTHER ; Start 05/03/17 at 17:00 Piperacillin Sod/ Tazobactam Sod (Zosyn 3.375 Gm Premix) 50 ml @ 100 mls/hr Q6H IV Last administered on 05/04/17 01:50; Start 05/03/17 at 20:00 Acetaminophen (Tylenol) 650 mg Q4H PRN PO FEVER/ PAIN 1-3; Start 05/03/17 at 16 :45 Acetaminophen/ Hydrocodone Bitart ([place] 5-325 Mg) 1 tab Q4H PRN PO PAIN 4-6 Last administered on 05/03/17 18:25; Start 05/03/17 at 16:45 Acetaminophen/ Hydrocodone Bitart ([place] 5-325 Mg) 2 tab Q4H PRN PO PAIN 7-10 Last administered on 05/04/17 08:42; Start 05/03/17 at 16:45 Ondansetron HCl 4 mg 4 mg Q8HR PRN IV PUSH NAUSEA; Start 05/03/17 at 16:45 Vancomycin HCl/ Sodium Chloride (Vancomycin Inj/ NS 500 ml Inj) 515 ml @ 250 mls/hr Q18H IV Last administered on 05/04/17 03:57; Start 05/04/17 at 05:00 Miscellaneous Information SPECIFIC LAB TO BE DRAWN:VANCOMY... ONCE ONCE .XX ; Start 05/06/17 at 10:45; Stop 05/06/17 at 10:46 A/P Assessment and Plan A/P -sepsis due to right buttock cellulitis/abscess continue with broad spectrum IV antibiotics- follow the blood cultures- continue with pain control- general surgery consult appreciated. -pulmonary nodule- f/u as outpatient- d/w the patient. Colby Brenner MD May 04, 2017 09:56
[2017-05-04] MEDS: HYDROmorphone HCL PF 1 MG/ML VIAL IV PUSH PRN ×3 (10:53→22:49)
[2017-05-04 12:00] VITALS: BP 124/88; PULSE 92; RESP 18; TEMP 97.2; O2SAT 96
--- NOTE | 2017-05-04 12:29 | EKG ---
Date Performed: 05/03/2017 Time Performed: 14:13:10 PTAGE: 46 years EKG: Sinus rhythm NONSPECIFIC T-WAVE ABNORMALITY Since previous tracing, no significant change noted BORDERLINE ECG PREVIOUS TRACING : 05/18/2016 10.23 DOCTOR: Alfredo Vang Interpretating Date/Time 05/04/2017 12:24:20
[2017-05-04 16:00] VITALS: BP 138/90; PULSE 98; RESP 18; TEMP 98.4; O2SAT 100
--- NOTE | 2017-05-04 18:25 | HHI.PR ---
Subjective Subjective Notes Right buttock still quite painful Objective Vitals/I&O Vital Signs Date Time Temp Pulse Resp B/P Pulse Ox O2 Delivery O2 Flow Rate FiO2 05/04/17 16:11 18 05/04/17 16:00 98.4 98 138/90 100 05/03/17 16:46 Room Air Labs Laboratory Tests Test 05/04/17 06:36 White Blood Count 15.9 Red Blood Count 4.08 Hemoglobin 12.5 Hematocrit 36.0 Mean Corpuscular Volume 88.3 Mean Corpuscular Hemoglobin 30.7 Mean Corpuscular Hemoglobin 34.8 Concent Red Cell Distribution Width 12.2 Platelet Count 238 Mean Platelet Volume 7.7 Neutrophils (%) (Auto) 72.2 Lymphocytes (%) (Auto) 12.3 Monocytes (%) (Auto) 13.4 Eosinophils (%) (Auto) 1.6 Basophils (%) (Auto) 0.5 Neutrophils # (Auto) 11.4 Lymphocytes # (Auto) 2.0 Monocytes # (Auto) 2.1 Eosinophils # (Auto) 0.3 Basophils # (Auto) 0.1 CBC Comment DIFF FINAL Differential Comment Date/Time Procedure Status Source Growth 05/04/17 11:00 Gram Stain Received Wound Buttock Pending 05/04/17 11:00 Wound Culture Received Wound Buttock Pending 05/03/17 14:30 Aerobic Blood Culture - Preliminary Resulted Blood Peripheral NO GROWTH IN 1 DAY 05/03/17 14:30 Anaerobic Blood Culture - Preliminary Resulted Blood Peripheral NO GROWTH IN 1 DAY Narrative Exam Right buttock perirectal area erythematous and indurated; small area purulent drainage. A/P Assessment and Plan Perirectal abscess, partially spontaneously draining. Will open further at bedside; I discussed plan with patient, who is agreeable. I discussed risks, benefits, alternatives, and convalescence with patient. Rodriguez De Paz MD May 04, 2017 18:25
[2017-05-04] MEDS ORDERED: HYDROmorphone HCL PF 2 MG/ML VIAL IV PUSH ONE (18:30)
[2017-05-04 21:00] VITALS: BP 147/90; PULSE 89; RESP 18; TEMP 97.7; O2SAT 97
[2017-05-05] VITALS: BP 137/74; PULSE 95; RESP 16; TEMP 98.2; O2SAT 97
[2017-05-05] MEDS: PIPERACIL-TAZO 3.375 GM PREMIX 50 ML IV SCH ×4 (02:10→20:30)
[2017-05-05] MEDS: HYDROmorphone HCL PF 1 MG/ML VIAL IV PUSH PRN ×4 (02:17→20:34)
[2017-05-05] MEDS: SODIUM CHLOR 0.9% 1000 ML INJ 1,000 ML IV SCH ×3 (05:01→20:37)
[2017-05-05 06:33] LABS: HEMATOCRIT 37.3 % (39.0-51.0); MEAN CELL VOLUME 88.7 FL (80.0-100.0); MEAN CORPUSCULAR HEMOGLOBIN 29.8 PG (27.0-34.0); MEAN CORPUSCULAR HGB CONC 33.5 % (32.0-36.0); PLATELET COUNT 282 TH/MM3 (150-450); RED CELL DISTRIBUTION WIDTH 12.6 % (11.6-17.2); REVIEW FLAG FINAL; WHITE BLOOD COUNT 12.3 TH/MM3 (4.0-11.0)
[2017-05-05 08:00] VITALS: BP 121/82; PULSE 95; RESP 18; TEMP 99; O2SAT 96
--- NOTE | 2017-05-05 09:15 | HHI.PR ---
Subjective Remarks in no acute distress. although he says that ' there's not as much pressure ' still with severe pain to the right buttock. remains afebrile. Objective Vitals Vital Signs Date Time Temp Pulse Resp B/P Pulse Ox O2 Delivery O2 Flow Rate FiO2 05/05/17 04:00 05/05/17 00:00 98.2 95 16 137/74 97 05/04/17 21:00 97.7 89 18 147/90 97 05/04/17 18:13 18 05/04/17 16:11 18 05/04/17 16:00 98.4 98 18 138/90 100 05/04/17 13:52 18 05/04/17 12:00 97.2 92 18 124/88 96 I/O 05/04/17 05/04/17 05/04/17 05/05/17 05/05/17 05/05/17 06:59 14:59 22:59 06:59 14:59 22:59 Intake Total 480 ml 250 ml 2899 ml 3137 ml Output Total 800 ml 1650 ml 450 ml 2000 ml Balance -320 ml -1400 ml 2449 ml 1137 ml Intake Oral 480 ml 250 ml IV Total 2899 ml 3137 ml Output Urine Total 800 ml 1650 ml 450 ml 2000 ml # Voids 3 2 # Bowel Movements 0 0 0 Result Diagram: 05/05/17 0624 05/03/17 1430 Imaging Last Impressions Chest X-Ray 05/03/17 1349 Signed Impressions: Service Date/Time: Wednesday, May 03, 2017 13:58 - CONCLUSION: 1. No infiltrate. 2. Small nodule right upper lung. CT chest recommended as outpatient. Ethan Murry MD Pelvis CT 05/03/17 0000 Signed Impressions: Service Date/Time: Wednesday, May 03, 2017 15:40 - CONCLUSION: Abnormal inflammatory changes and skin thickening along the right gluteal cleft and in the adjacent subcutaneous fat of the perineum. No drainable fluid collection is present. The inflammatory changes extend towards the anus but no definite connection is identified. Chepe Cormier MD Objective Remarks GENERAL: This is a well-nourished, well-developed patient, in no apparent distress. CARDIOVASCULAR: Regular rate and regular rhythm without murmurs, gallops, or rubs. RESPIRATORY: Clear to auscultation. Breath sounds equal bilaterally. No wheezes , rales, or rhonchi. GASTROINTESTINAL: Abdomen soft, non-tender, nondistended. Normal, active bowel sounds MUSCULOSKELETAL: Extremities without clubbing, cyanosis, or edema. NEURO: Alert & Oriented x4 to person, place, time, situation. Moves all ext x4 skin; erythema/ tenderness with minimal oozing - right gluteal region Procedures abscess drainage at the bedside Medications and IVs Current Medications Sodium Chloride 1,000 ml @ 125 mls/hr Q8H IV Last administered on 05/05/17 05 :01; Start 05/03/17 at 14:00 Piperacillin Sod/ Tazobactam Sod 50 ml @ 100 mls/hr ONCE ONCE IV Last administered on 05/03/17 14:37; Start 05/03/17 at 14:00; Stop 05/03/17 at 14:29 ; Status DC Vancomycin HCl/ Sodium Chloride (Vancomycin Inj/ NS 250 ml Inj) 250 ml @ 250 mls/hr ONCE ONCE IV Last administered on 05/03/17 16:44; Start 05/03/17 at 14 :00; Stop 05/03/17 at 14:59; Status DC Morphine Sulfate (Morphine Inj) 2 mg ONCE ONCE IV PUSH Last administered on 14:37; Start 05/03/17 at 14:00; Stop 05/03/17 at 14:01; Status DC Ondansetron HCl (Zofran Inj) 4 mg ONCE ONCE IV PUSH Last administered on 14:36; Start 05/03/17 at 14:00; Stop 05/03/17 at 14:01; Status DC Hydromorphone HCl (Dilaudid Pf Inj) 1 mg ONCE ONCE IV PUSH Last administered on 05/03/17 16:16; Start 05/03/17 at 16:00; Stop 05/03/17 at 16:01; Status DC Iohexol 85 ml 85 ml STK-MED ONCE IV Last administered on 05/03/17 16:16; Start 05/03/17 at 16:16; Stop 05/03/17 at 16:17; Status DC Pharmacy Profile Note 0 ml @ 0 mls/hr UNSCH OTHER ; Start 05/03/17 at 17:00 Piperacillin Sod/ Tazobactam Sod (Zosyn 3.375 Gm Premix) 50 ml @ 100 mls/hr Q6H IV Last administered on 05/05/17 02:10; Start 05/03/17 at 20:00 Acetaminophen (Tylenol) 650 mg Q4H PRN PO FEVER/ PAIN 1-3; Start 05/03/17 at 16 :45 Acetaminophen/ Hydrocodone Bitart ([place] 5-325 Mg) 1 tab Q4H PRN PO PAIN 4-6 Last administered on 05/04/17 17:13; Start 05/03/17 at 16:45 Acetaminophen/ Hydrocodone Bitart ([place] 5-325 Mg) 2 tab Q4H PRN PO PAIN 7-10 Last administered on 05/04/17 20:11; Start 05/03/17 at 16:45 Ondansetron HCl 4 mg 4 mg Q8HR PRN IV PUSH NAUSEA; Start 05/03/17 at 16:45 Vancomycin HCl/ Sodium Chloride (Vancomycin Inj/ NS 500 ml Inj) 515 ml @ 250 mls/hr Q18H IV Last administered on 05/04/17 22:50; Start 05/04/17 at 05:00 Miscellaneous Information SPECIFIC LAB TO BE DRAWN:VANCOMY... ONCE ONCE .XX ; Start 05/06/17 at 10:45; Stop 05/06/17 at 10:46 Hydromorphone HCl (Dilaudid Pf Inj) 0.2 mg Q4H PRN IV PUSH BREAKTHROUGH PAIN Last administered on 05/05/17 06:28; Start 05/04/17 at 10:00 Hydromorphone HCl (Dilaudid Pf Inj) 2 mg ONCE ONCE IV PUSH Last administered on 05/04/17 18:36; Start 05/04/17 at 18:30; Stop 05/04/17 at 18:31; Status DC A/P Assessment and Plan A/P -sepsis due to right buttock cellulitis/abscess continue with broad spectrum IV antibiotics- follow the cultures- continue with pain control- general surgery follow-up appreciated- s/p abscess drainage at the bedside. -pulmonary nodule- f/u as outpatient- d/w the patient. Colby Brenner MD May 05, 2017 09:15
[2017-05-05 12:00] VITALS: BP 118/74; PULSE 95; RESP 18; TEMP 99.3; O2SAT 95
[2017-05-05] MEDS: ACETAMINOPHEN/HYDROcodone 325 MG/5 MG TAB PO PRN ×4 (14:14→23:05)
[2017-05-05] MEDS: VANCOMYCIN INJ 1,500 MG in SODIUM CHLORID 0.9% 500 ML INJ 500 ML IV SCH (17:24)
--- NOTE | 2017-05-05 18:14 | HHI.PR ---
Subjective Subjective Notes DAILY PROGRESS NOTE FOR SURGICAL ATTENDING, DR. SHANKAR AUGUST Physical little better but tender Objective Vitals/I&O Vital Signs Date Time Temp Pulse Resp B/P Pulse Ox O2 Delivery O2 Flow Rate FiO2 05/05/17 12:00 99.3 95 18 118/74 95 05/03/17 16:46 Room Air Labs Laboratory Tests Test 05/05/17 06:24 White Blood Count 12.3 Red Blood Count 4.20 Hemoglobin 12.5 Hematocrit 37.3 Mean Corpuscular Volume 88.7 Mean Corpuscular Hemoglobin 29.8 Mean Corpuscular Hemoglobin 33.5 Concent Red Cell Distribution Width 12.6 Platelet Count 282 Mean Platelet Volume 7.2 Date/Time Procedure Status Source Growth 05/04/17 11:00 Gram Stain - Final Resulted Wound Buttock 05/04/17 11:00 Wound Culture - Preliminary Resulted S. Aureus Mrsa 05/03/17 14:30 Aerobic Blood Culture - Preliminary Resulted Blood Peripheral NO GROWTH IN 2 DAYS 05/03/17 14:30 Anaerobic Blood Culture - Preliminary Resulted Blood Peripheral NO GROWTH IN 2 DAYS Radiology Last Impressions Chest X-Ray 05/03/17 1349 Signed Impressions: Service Date/Time: Wednesday, May 03, 2017 13:58 - CONCLUSION: 1. No infiltrate. 2. Small nodule right upper lung. CT chest recommended as outpatient. Ethan Murry MD Pelvis CT 05/03/17 0000 Signed Impressions: Service Date/Time: Wednesday, May 03, 2017 15:40 - CONCLUSION: Abnormal inflammatory changes and skin thickening along the right gluteal cleft and in the adjacent subcutaneous fat of the perineum. No drainable fluid collection is present. The inflammatory changes extend towards the anus but no definite connection is identified. Chepe Cormier MD Cardiovascular: Regular Narrative Exam Still mildly erythematous Purulent drainage from ID site A/P Problem List: (1) MRSA cellulitis (2) MRSA (methicillin resistant staph aureus) culture positive (3) Cellulitis (4) Abscess of right buttock (5) Cellulitis of buttock, right Assessment and Plan 46-year-old gentleman who developed a right gluteal cellulitic response subsequently developed an abscess drained by Dr. De Paz with some response. His white count is trending downward He still has a fair amount of erythema and tenderness in the cellulitis. I told him if he doesn't improve in the next 24 hours male require surgical debridement I will keep him nothing by mouth tonight just in case we need to bring him to the operating room Problem Qualifiers (1) Cellulitis: Qualified Code: L03.317 - Cellulitis of buttock Shankar August MD May 05, 2017 18:14
[2017-05-05 20:00] VITALS: BP 142/84; PULSE 89; RESP 20; TEMP 97.8; O2SAT 95
[2017-05-06] VITALS: BP 137/86; PULSE 91; RESP 20; TEMP 96.7; O2SAT 99
[2017-05-06] MEDS: PIPERACIL-TAZO 3.375 GM PREMIX 50 ML IV SCH ×2 (02:37→08:21)
[2017-05-06] MEDS: HYDROmorphone HCL PF 1 MG/ML VIAL IV PUSH PRN ×5 (02:41→22:21)
[2017-05-06] MEDS: SODIUM CHLOR 0.9% 1000 ML INJ 1,000 ML IV SCH ×3 (06:16→23:57)
[2017-05-06] MEDS: ACETAMINOPHEN/HYDROcodone 325 MG/5 MG TAB PO PRN ×3 (06:17→20:08)
[2017-05-06 08:00] VITALS: BP 123/82; PULSE 85; RESP 18; TEMP 97.5; O2SAT 95
--- NOTE | 2017-05-06 08:23 | HHI.PR ---
Subjective Remarks is more comfortable although still with some pain to the right buttock. remains afebrile. no other complaints. Objective Vitals Vital Signs Date Time Temp Pulse Resp B/P Pulse Ox O2 Delivery O2 Flow Rate FiO2 05/06/17 07:50 16 05/06/17 00:00 96.7 91 20 137/86 99 05/05/17 20:00 97.8 89 20 142/84 95 05/05/17 12:00 99.3 95 18 118/74 95 I/O 05/05/17 05/05/17 05/05/17 05/06/17 05/06/17 05/06/17 06:59 14:59 22:59 06:59 14:59 22:59 Intake Total 3137 ml 850 ml 2735 ml 1003 ml 0 ml Output Total 2000 ml 2000 ml 1600 ml 975 ml Balance 1137 ml -1150 ml 1135 ml 1003 ml -975 ml Intake Oral 850 ml 1600 ml 0 ml IV Total 3137 ml 1135 ml 1003 ml Output Urine Total 2000 ml 2000 ml 1600 ml 975 ml # Voids 2 4 # Bowel Movements 0 0 Result Diagram: 05/05/17 0624 05/03/17 1430 Imaging Last Impressions Chest X-Ray 05/03/17 1349 Signed Impressions: Service Date/Time: Wednesday, May 03, 2017 13:58 - CONCLUSION: 1. No infiltrate. 2. Small nodule right upper lung. CT chest recommended as outpatient. Ethan Murry MD Pelvis CT 05/03/17 0000 Signed Impressions: Service Date/Time: Wednesday, May 03, 2017 15:40 - CONCLUSION: Abnormal inflammatory changes and skin thickening along the right gluteal cleft and in the adjacent subcutaneous fat of the perineum. No drainable fluid collection is present. The inflammatory changes extend towards the anus but no definite connection is identified. Chepe Cormier MD Objective Remarks GENERAL: This is a well-nourished, well-developed patient, in no apparent distress. CARDIOVASCULAR: Regular rate and regular rhythm without murmurs, gallops, or rubs. RESPIRATORY: Clear to auscultation. Breath sounds equal bilaterally. No wheezes , rales, or rhonchi. GASTROINTESTINAL: Abdomen soft, non-tender, nondistended. Normal, active bowel sounds MUSCULOSKELETAL: Extremities without clubbing, cyanosis, or edema. NEURO: Alert & Oriented x4 to person, place, time, situation. Moves all ext x4 skin; erythema/ tenderness with minimal oozing - right gluteal region Procedures abscess drainage at the bedside Medications and IVs Current Medications Sodium Chloride 1,000 ml @ 125 mls/hr Q8H IV Last administered on 05/06/17 06 :16; Start 05/03/17 at 14:00 Piperacillin Sod/ Tazobactam Sod 50 ml @ 100 mls/hr ONCE ONCE IV Last administered on 05/03/17 14:37; Start 05/03/17 at 14:00; Stop 05/03/17 at 14:29 ; Status DC Vancomycin HCl/ Sodium Chloride (Vancomycin Inj/ NS 250 ml Inj) 250 ml @ 250 mls/hr ONCE ONCE IV Last administered on 05/03/17 16:44; Start 05/03/17 at 14 :00; Stop 05/03/17 at 14:59; Status DC Morphine Sulfate (Morphine Inj) 2 mg ONCE ONCE IV PUSH Last administered on 14:37; Start 05/03/17 at 14:00; Stop 05/03/17 at 14:01; Status DC Ondansetron HCl (Zofran Inj) 4 mg ONCE ONCE IV PUSH Last administered on 14:36; Start 05/03/17 at 14:00; Stop 05/03/17 at 14:01; Status DC Hydromorphone HCl (Dilaudid Pf Inj) 1 mg ONCE ONCE IV PUSH Last administered on 05/03/17 16:16; Start 05/03/17 at 16:00; Stop 05/03/17 at 16:01; Status DC Iohexol 85 ml 85 ml STK-MED ONCE IV Last administered on 05/03/17 16:16; Start 05/03/17 at 16:16; Stop 05/03/17 at 16:17; Status DC Pharmacy Profile Note 0 ml @ 0 mls/hr UNSCH OTHER ; Start 05/03/17 at 17:00 Piperacillin Sod/ Tazobactam Sod (Zosyn 3.375 Gm Premix) 50 ml @ 100 mls/hr Q6H IV Last administered on 05/06/17 02:37; Start 05/03/17 at 20:00 Acetaminophen (Tylenol) 650 mg Q4H PRN PO FEVER; Start 05/03/17 at 16:45 Acetaminophen/ Hydrocodone Bitart ([place] 5-325 Mg) 1 tab Q4H PRN PO 1-4 Last administered on 05/04/17 17:13; Start 05/03/17 at 16:45 Acetaminophen/ Hydrocodone Bitart ([place] 5-325 Mg) 2 tab Q4H PRN PO PAIN 5-7 Last administered on 05/06/17 06:17; Start 05/03/17 at 16:45 Ondansetron HCl 4 mg 4 mg Q8HR PRN IV PUSH NAUSEA; Start 05/03/17 at 16:45 Vancomycin HCl/ Sodium Chloride (Vancomycin Inj/ NS 500 ml Inj) 515 ml @ 250 mls/hr Q18H IV Last administered on 05/05/17 17:24; Start 05/04/17 at 05:00 Miscellaneous Information SPECIFIC LAB TO BE DRAWN:VANCOMY... ONCE ONCE .XX ; Start 05/06/17 at 10:45; Stop 05/06/17 at 10:46 Hydromorphone HCl (Dilaudid Pf Inj) 0.2 mg Q4H PRN IV PUSH BREAKTHROUGH PAIN Last administered on 05/05/17 06:28; Start 05/04/17 at 10:00; Stop 05/05/17 at 09:17; Status DC Hydromorphone HCl (Dilaudid Pf Inj) 2 mg ONCE ONCE IV PUSH Last administered on 05/04/17 18:36; Start 05/04/17 at 18:30; Stop 05/04/17 at 18:31; Status DC Hydromorphone HCl (Dilaudid Pf Inj) 0.5 mg Q4H PRN IV PUSH PAIN 8-10 Last administered on 05/06/17 02:41; Start 05/05/17 at 10:00 A/P Assessment and Plan A/P -sepsis due to right buttock cellulitis/abscess wound culture with MRSA- continue with IV Vanco - continue with pain control-- s/p abscess drainage at the bedside general surgery following. -pulmonary nodule- f/u as outpatient- d/w the patient. Colby Brenner MD May 06, 2017 08:23
[2017-05-06] MEDS ORDERED: fentaNYL CITRATE 250 MCG/5 ML AMP ONE (10:35)
[2017-05-06] MEDS ORDERED: VANCOMYCIN TROUGH ONE (10:45)
[2017-05-06] MEDS ORDERED: MIDAZOLAM HCL 2 MG/2 ML VIAL ONE (10:57)
[2017-05-06] MEDS ORDERED: LIDOCAINE 1%/EPINEPHrine 1:100,000 SOLN 30 ML VIAL ONE (11:07)
[2017-05-06] MEDS: VANCOMYCIN INJ 1,500 MG in SODIUM CHLORID 0.9% 500 ML INJ 500 ML IV SCH ×2 (11:25→23:57)
[2017-05-06] MEDS ORDERED: ONDANSETRON HCL 4 MG/2 ML VIAL IV PUSH ONE (12:00)
[2017-05-06] MEDS ORDERED: PROPOFOL 200 MG/20 ML AMP IV ONE (12:00)
[2017-05-06] MEDS ORDERED: RESP: ALBUTEROL 2.5 MG/3 ML NEB (SCH) ONE (12:03)
[2017-05-06] MEDS ORDERED: MORPHINE SULFATE 4 MG/ML INJ ONE (12:40)
[2017-05-06 13:20] VITALS: BP 134/79; PULSE 83; RESP 16; TEMP 96.8; O2SAT 96
[2017-05-06] MEDS: ACETAMINOPHEN 1000 MG/100 ML VIAL IV SCH ×2 (15:16→20:00)
[2017-05-06 16:00] VITALS: BP 117/68; PULSE 81; RESP 18; TEMP 97.7; O2SAT 98
[2017-05-06 20:00] VITALS: BP 143/99; PULSE 90; RESP 18; TEMP 96.5; O2SAT 99
[2017-05-07] VITALS: BP 106/77; PULSE 85; RESP 18; TEMP 97.4; O2SAT 96
[2017-05-07] MEDS: ACETAMINOPHEN/HYDROcodone 325 MG/5 MG TAB PO PRN ×5 (00:25→22:55)
[2017-05-07] MEDS: ACETAMINOPHEN 1000 MG/100 ML VIAL IV SCH ×4 (02:00→20:00)
[2017-05-07] MEDS: HYDROmorphone HCL PF 1 MG/ML VIAL IV PUSH PRN ×4 (04:16→21:01)
[2017-05-07 05:52] LABS: AUTOMATED NEUTROPHIL # 4.7 TH/MM3 (1.8-7.7); BASOPHIL # 0.1 TH/MM3 (0-0.2); BASOPHIL % 0.6 % (0.0-2.0); EOSINOPHIL # 0.3 TH/MM3 (0-0.4); HEMATOCRIT 35.6 % (39.0-51.0); LYMPH % 27.7 % (9.0-44.0); LYMPHOCYTE # 2.4 TH/MM3 (1.0-4.8); MEAN CELL VOLUME 88.4 FL (80.0-100.0); MEAN CORPUSCULAR HEMOGLOBIN 29.6 PG (27.0-34.0); MEAN CORPUSCULAR HGB CONC 33.5 % (32.0-36.0); MONO % 12.7 % (0.0-8.0); PLATELET COUNT 306 TH/MM3 (150-450); RED BLOOD COUNT 4.03 MIL/MM3 (4.50-5.90); RED CELL DISTRIBUTION WIDTH 12.7 % (11.6-17.2); WHITE BLOOD COUNT 8.6 TH/MM3 (4.0-11.0)
[2017-05-07 05:56] LABS: CHLORIDE 108 MEQ/L (98-107); POTASSIUM 4.1 MEQ/L (3.5-5.1); SODIUM (NA) 142 MEQ/L (136-145)
[2017-05-07] MEDS: SODIUM CHLOR 0.9% 1000 ML INJ 1,000 ML IV SCH ×3 (06:00→22:00)
[2017-05-07 06:01] LABS: ANION GAP 7 MEQ/L (5-15); BICARBONATE 27.3 MEQ/L (21.0-32.0)
[2017-05-07 06:02] LABS: BLOOD UREA NITROGEN 11 MG/DL (7-18)
[2017-05-07 06:05] LABS: ALT (GPT) 75 U/L (12-78); AST (GOT) 24 U/L (15-37); GLOMERULAR FILTRATION RATE 84 ML/MIN (>89)
[2017-05-07 06:06] LABS: TOTAL BILIRUBIN ADULT 0.3 MG/DL (0.2-1.0)
[2017-05-07 06:07] LABS: ALKALINE PHOSPHATASE 117 U/L (45-117)
[2017-05-07 06:22] LABS: HEMO FLAGS DIFF FINAL
[2017-05-07 08:00] VITALS: BP 147/84; PULSE 75; RESP 16; TEMP 98.2; O2SAT 97
--- NOTE | 2017-05-07 09:01 | HHI.PR ---
Subjective Remarks in no acute distress. remains afebrile. pain is fairly controlled. Objective Vitals Vital Signs Date Time Temp Pulse Resp B/P Pulse Ox O2 Delivery O2 Flow Rate FiO2 05/07/17 08:00 98.2 75 16 147/84 97 05/07/17 00:00 97.4 85 18 106/77 96 05/06/17 20:00 96.5 90 18 143/99 99 05/06/17 18:48 16 05/06/17 16:05 16 05/06/17 16:00 97.7 81 18 117/68 98 05/06/17 15:14 16 05/06/17 13:20 96.8 83 16 134/79 96 05/06/17 12:50 98.0 88 16 144/74 99 Room Air 05/06/17 12:35 86 17 123/74 99 Room Air 05/06/17 12:20 91 18 131/67 98 Room Air 05/06/17 12:05 98.0 90 20 109/72 99 Room Air I/O 05/06/17 05/06/17 05/06/17 05/07/17 05/07/17 05/07/17 07:00 15:00 23:00 07:00 15:00 23:00 Intake Total 1003 ml 955 ml 58 ml 420 ml Output Total 975 ml 1300 ml 550 ml Balance 1003 ml -20 ml -1242 ml -130 ml Intake Oral 0 ml 58 ml 420 ml IV Total 1003 ml 455 ml Other 500 ml Output Urine Total 975 ml 1300 ml 550 ml # Voids 4 # Bowel Movements 0 1 Result Diagram: 05/07/17 0516 05/07/17 0516 Imaging Last Impressions Chest X-Ray 05/03/17 1349 Signed Impressions: Service Date/Time: Wednesday, May 03, 2017 13:58 - CONCLUSION: 1. No infiltrate. 2. Small nodule right upper lung. CT chest recommended as outpatient. Ethan Murry MD Pelvis CT 05/03/17 0000 Signed Impressions: Service Date/Time: Wednesday, May 03, 2017 15:40 - CONCLUSION: Abnormal inflammatory changes and skin thickening along the right gluteal cleft and in the adjacent subcutaneous fat of the perineum. No drainable fluid collection is present. The inflammatory changes extend towards the anus but no definite connection is identified. Chepe Cormier MD Objective Remarks GENERAL: This is a well-nourished, well-developed patient, in no apparent distress. CARDIOVASCULAR: Regular rate and regular rhythm without murmurs, gallops, or rubs. RESPIRATORY: Clear to auscultation. Breath sounds equal bilaterally. No wheezes , rales, or rhonchi. GASTROINTESTINAL: Abdomen soft, non-tender, nondistended. Normal, active bowel sounds MUSCULOSKELETAL: Extremities without clubbing, cyanosis, or edema. NEURO: Alert & Oriented x4 to person, place, time, situation. Moves all ext x4 skin; erythema/ tenderness with minimal oozing - right gluteal region Procedures gluteal abscess drainage Medications and IVs Current Medications Sodium Chloride 1,000 ml @ 125 mls/hr Q8H IV Last administered on 05/07/17 06 :00; Start 05/03/17 at 14:00 Piperacillin Sod/ Tazobactam Sod 50 ml @ 100 mls/hr ONCE ONCE IV Last administered on 05/03/17 14:37; Start 05/03/17 at 14:00; Stop 05/03/17 at 14:29 ; Status DC Vancomycin HCl/ Sodium Chloride (Vancomycin Inj/ NS 250 ml Inj) 250 ml @ 250 mls/hr ONCE ONCE IV Last administered on 05/03/17 16:44; Start 05/03/17 at 14 :00; Stop 05/03/17 at 14:59; Status DC Morphine Sulfate (Morphine Inj) 2 mg ONCE ONCE IV PUSH Last administered on 14:37; Start 05/03/17 at 14:00; Stop 05/03/17 at 14:01; Status DC Ondansetron HCl (Zofran Inj) 4 mg ONCE ONCE IV PUSH Last administered on 14:36; Start 05/03/17 at 14:00; Stop 05/03/17 at 14:01; Status DC Hydromorphone HCl (Dilaudid Pf Inj) 1 mg ONCE ONCE IV PUSH Last administered on 05/03/17 16:16; Start 05/03/17 at 16:00; Stop 05/03/17 at 16:01; Status DC Iohexol 85 ml 85 ml STK-MED ONCE IV Last administered on 05/03/17 16:16; Start 05/03/17 at 16:16; Stop 05/03/17 at 16:17; Status DC Pharmacy Profile Note 0 ml @ 0 mls/hr UNSCH OTHER ; Start 05/03/17 at 17:00 Piperacillin Sod/ Tazobactam Sod (Zosyn 3.375 Gm Premix) 50 ml @ 100 mls/hr Q6H IV Last administered on 05/06/17 08:21; Start 05/03/17 at 20:00; Stop at 08:24; Status DC Acetaminophen (Tylenol) 650 mg Q4H PRN PO FEVER; Start 05/03/17 at 16:45 Acetaminophen/ Hydrocodone Bitart ([place] 5-325 Mg) 1 tab Q4H PRN PO 1-4 Last administered on 05/04/17 17:13; Start 05/03/17 at 16:45 Acetaminophen/ Hydrocodone Bitart ([place] 5-325 Mg) 2 tab Q4H PRN PO PAIN 5-7 Last administered on 05/07/17 00:25; Start 05/03/17 at 16:45 Ondansetron HCl 4 mg 4 mg Q8HR PRN IV PUSH NAUSEA; Start 05/03/17 at 16:45 Vancomycin HCl/ Sodium Chloride (Vancomycin Inj/ NS 500 ml Inj) 515 ml @ 250 mls/hr Q18H IV Last administered on 05/06/17 11:25; Start 05/04/17 at 05:00; Stop 05/06/17 at 14:26; Status DC Miscellaneous Information SPECIFIC LAB TO BE DRAWN:VANCOMY... ONCE ONCE .XX Last administered on 05/06/17 10:24; Start 05/06/17 at 10:45; Stop 05/06/17 at 10:46; Status DC Hydromorphone HCl (Dilaudid Pf Inj) 0.2 mg Q4H PRN IV PUSH BREAKTHROUGH PAIN Last administered on 05/05/17 06:28; Start 05/04/17 at 10:00; Stop 05/05/17 at 09:17; Status DC Hydromorphone HCl (Dilaudid Pf Inj) 2 mg ONCE ONCE IV PUSH Last administered on 05/04/17 18:36; Start 05/04/17 at 18:30; Stop 05/04/17 at 18:31; Status DC Hydromorphone HCl (Dilaudid Pf Inj) 0.5 mg Q4H PRN IV PUSH PAIN 8-10 Last administered on 05/07/17 08:03; Start 05/05/17 at 10:00 Fentanyl Citrate (fentaNYL INJ) 250 mcg STK-MED ONCE .ROUTE Last administered on 05/06/17 10:35; Start 05/06/17 at 10:35; Stop 05/06/17 at 10:36; Status DC Midazolam HCl (Versed Inj) 2 mg STK-MED ONCE .ROUTE Last administered on 11:00; Start 05/06/17 at 10:57; Stop 05/06/17 at 10:58; Status DC Lidocaine/ Epinephrine (Xylocaine-Epi 1%-1:100,000 Inj) 30 ml STK-MED ONCE .ROUTE Last administered on 05/06/17 11:30; Start 05/06/17 at 11:07; Stop at 11:08; Status DC Albuterol Sulfate (Albuterol Neb) 2.5 mg STK-MED ONCE .ROUTE Last administered on 05/06/17 12:05; Start 05/06/17 at 12:03; Stop 05/06/17 at 12:04; Status DC Morphine Sulfate (Morphine Inj) 4 mg STK-MED ONCE .ROUTE Last administered on 12:40; Start 05/06/17 at 12:40; Stop 05/06/17 at 12:41; Status DC Acetaminophen 1000 mg 1,000 mg Q6H IV Last administered on 05/07/17 08:02; Start 05/06/17 at 14:00 Vancomycin HCl/ Sodium Chloride (Vancomycin Inj/ NS 500 ml Inj) 515 ml @ 250 mls/hr Q12H IV Last administered on 05/06/17 23:57; Start 05/06/17 at 23:00 Miscellaneous Information SPECIFIC LAB TO BE DRAWN:VANCOMY... ONCE ONCE .XX ; Start 05/07/17 at 22:45; Stop 05/07/17 at 22:46 A/P Assessment and Plan A/P -sepsis due to right buttock cellulitis/abscess s/p gluteal abscess drainage wound culture with MRSA- continue with IV Vanco - continue with pain control-- general surgery following. -pulmonary nodule- f/u as outpatient- d/w the patient. Colby Brenner MD May 07, 2017 09:01
--- NOTE | 2017-05-07 10:18 | HHI.PR ---
Subjective Subjective Notes PROGRESS NOTE FOR SURGICAL ATTENDING, DR. RICHAR AUGUST Resting in bed No issues overnight Anxious to have dressing changed Objective Vitals/I&O Vital Signs Date Time Temp Pulse Resp B/P Pulse Ox O2 Delivery O2 Flow Rate FiO2 05/07/17 08:33 18 05/07/17 08:00 98.2 75 147/84 97 05/06/17 12:50 Room Air Labs Laboratory Tests Test 05/06/17 05/07/17 10:25 05:16 Creatinine 0.91 0.97 Estimat Glomerular Filtration 90 84 Rate Vancomycin Level Trough 5.6 White Blood Count 8.6 Red Blood Count 4.03 Hemoglobin 11.9 Hematocrit 35.6 Mean Corpuscular Volume 88.4 Mean Corpuscular Hemoglobin 29.6 Mean Corpuscular Hemoglobin 33.5 Concent Red Cell Distribution Width 12.7 Platelet Count 306 Mean Platelet Volume 7.5 Neutrophils (%) (Auto) 55.0 Lymphocytes (%) (Auto) 27.7 Monocytes (%) (Auto) 12.7 Eosinophils (%) (Auto) 4.0 Basophils (%) (Auto) 0.6 Neutrophils # (Auto) 4.7 Lymphocytes # (Auto) 2.4 Monocytes # (Auto) 1.1 Eosinophils # (Auto) 0.3 Basophils # (Auto) 0.1 CBC Comment DIFF FINAL Differential Comment Sodium Level 142 Potassium Level 4.1 Chloride Level 108 Carbon Dioxide Level 27.3 Anion Gap 7 Blood Urea Nitrogen 11 Random Glucose 99 Calcium Level 8.8 Total Bilirubin 0.3 Aspartate Amino Transf 24 (AST/SGOT) Alanine Aminotransferase 75 (ALT/SGPT) Alkaline Phosphatase 117 Total Protein 6.5 Albumin 2.6 Date/Time Procedure Status Source Growth 05/06/17 11:35 Gram Stain - Final Resulted Wound Buttock 05/06/17 11:35 Wound Culture Resulted Wound Buttock Pending 05/06/17 11:35 Fungal Smear - Final Resulted Wound Buttock NO FUNGAL ELEMENTS SEEN. 05/06/17 11:35 Fungal Culture Resulted Wound Buttock Pending 05/06/17 11:35 Acid Fast Stain Received Wound Buttock Pending 05/06/17 11:35 Mycobacterial Culture Received Wound Buttock Pending 05/03/17 14:30 Aerobic Blood Culture - Preliminary Resulted Blood Peripheral NO GROWTH IN 3 DAYS 05/03/17 14:30 Anaerobic Blood Culture - Preliminary Resulted Blood Peripheral NO GROWTH IN 3 DAYS Radiology Last Impressions Chest X-Ray 05/03/17 1349 Signed Impressions: Service Date/Time: Wednesday, May 03, 2017 13:58 - CONCLUSION: 1. No infiltrate. 2. Small nodule right upper lung. CT chest recommended as outpatient. Ethan Murry MD Pelvis CT 05/03/17 0000 Signed Impressions: Service Date/Time: Wednesday, May 03, 2017 15:40 - CONCLUSION: Abnormal inflammatory changes and skin thickening along the right gluteal cleft and in the adjacent subcutaneous fat of the perineum. No drainable fluid collection is present. The inflammatory changes extend towards the anus but no definite connection is identified. Chepe Cormier MD Cardiovascular: Regular Lungs: Clear Abdomen: Non-distended, Non-tender Extremities: Other (see below) Narrative Exam RIGHT gluteal abscess x2---packing removed--- wound with minimal drainage; repacked A/P Problem List: (1) MRSA cellulitis (2) MRSA (methicillin resistant staph aureus) culture positive (3) Cellulitis (4) Abscess of right buttock (5) Cellulitis of buttock, right Assessment and Plan 46 year old male POD1 I&D RIGHT gluteal abscess -Dressing changed BID -Okay to shower between dressing changes -OOB and mobilize -Continue antibiotics -Discussed with CANDY Staples Attending Statement PROGRESS NOTE FOR SURGICAL ATTENDING, DR. RICHAR AUGUST I agree with above assessment and plan. The exam, history, and the medical decision-making described in the above note were completed with the assistance of the mid-level provider. I reviewed and agree with the findings presented. pt feels better could dc soon will need home health I attest that I had a [id number] encounter with the patient on the same day, and personally performed and documented my assessment and findings in the medical record. The following services were provided during this hospital visit: Chart data review, vital sign assessments/reviewing monitor data Review of consultations notes if present. Medication orders/review and/or management Ordering and/or reviewing lab tests Ordering and/or interpreting/reviewing x-rays and/or diagnostic studies Care of the patient and discussion of the patient with the care team Documentation time To help prompt me to consider important information that might be impacting today's encounter and assessment, information from prior notes written by myself or my colleagues may have been "brought forward/copy and pasted" into today's note. Problem Qualifiers (1) Cellulitis: Qualified Code: L03.317 - Cellulitis of buttock Gemma Martinez May 07, 2017 10:18 Richar August MD May 07, 2017 17:17
--- NOTE | 2017-05-07 11:19 | MP ---
cc: BUCK MALDONADO M.D. DATE OF SURGERY: 05/04/2017 PROCEDURE Incision and drainage right perianal abscess. ANESTHESIA None. ESTIMATED BLOOD LOSS 50 mL. COMPLICATIONS None. DRAINS None. PROCEDURE IN DETAIL The procedure was explained to the patient and consent obtained. The patient indicated the correct side with his finger during the timeout, and confirmed during timeout the procedure to be performed as well as he remained wide awake. He was given IV pain medicine at this point and the right perianal region was prepped with Betadine. There was an opening where purulent material was coming out and this was opened and widened for approximately 2-3 cm anteriorly. This was done in a longitudinal fashion. A large amount of purulent material was expressed and the indurated tissue immediately was decompressed. When this was completed the wound was swabbed out with peroxide and 4x4s and an ABD pad applied. The patient tolerated the procedure extremely well. There was no active bleeding at the end of the procedure. The patient will begin daily dressing changes and be allowed to shower. MD NORBERT Guevara/KALLIE /7:44 PM /11:17 AM
[2017-05-07 12:00] VITALS: BP 139/86; PULSE 82; RESP 16; TEMP 98.1; O2SAT 96
[2017-05-07] MEDS: VANCOMYCIN INJ 1,500 MG in SODIUM CHLORID 0.9% 500 ML INJ 500 ML IV SCH ×2 (12:27→23:00)
--- NOTE | 2017-05-07 14:58 | HHI.FF ---
Face to Face Verification Diagnosis: (1) Cellulitis of buttock, right Home Health Nursing Order: Wound care and dressing changes Instructions: RIGHT gluteal abscess---- Iodoform packing BID into wound; cover with ABD pad; okay to shower inbetween dressing changes I have seen patient Jamie Peace on 05/07/17. My clinical findings support the need for the requested home health care services because: Limited ability to care for self High risk of falls I certify that my clinical findings support that this patient is homebound because: Post-op weakness Gemma Martinez May 07, 2017 14:58
[2017-05-07 16:00] VITALS: BP 143/74; PULSE 95; RESP 16; TEMP 98.2; O2SAT 96
[2017-05-07 20:00] VITALS: BP 138/72; PULSE 78; RESP 18; TEMP 97.9; O2SAT 97
[2017-05-07] MEDS: LACTOBACILLUS ACIDOPHILUS TAB PO SCH (21:01)
[2017-05-07] MEDS ORDERED: VANCOMYCIN TROUGH ONE (22:45)
[2017-05-08] VITALS: BP 132/80; PULSE 85; RESP 18; TEMP 98.5; O2SAT 95
[2017-05-08] MEDS: ACETAMINOPHEN 1000 MG/100 ML VIAL IV SCH ×2 (02:43→09:30)
[2017-05-08] MEDS: ACETAMINOPHEN/HYDROcodone 325 MG/5 MG TAB PO PRN ×3 (02:44→13:57)
[2017-05-08] MEDS: SODIUM CHLOR 0.9% 1000 ML INJ 1,000 ML IV SCH (05:02)
[2017-05-08 08:00] VITALS: BP 161/81; PULSE 87; RESP 20; TEMP 98.1; O2SAT 95
[2017-05-08] MEDS: LACTOBACILLUS ACIDOPHILUS TAB PO SCH (09:29)
[2017-05-08 12:00] VITALS: BP 150/91; PULSE 93; RESP 20; TEMP 98.8; O2SAT 96
[2017-05-08] MEDS: VANCOMYCIN INJ 1,500 MG in SODIUM CHLORID 0.9% 500 ML INJ 500 ML IV SCH (12:25)
[2017-05-08] MEDS: HYDROmorphone HCL PF 1 MG/ML VIAL IV PUSH PRN (13:08)
[2017-05-08] MEDS ORDERED: PERC10TA27 PO (13:35)
[2017-05-08] MEDS ORDERED: LACT PO (13:35)
[2017-05-08] MEDS ORDERED: IBUP800T23 PO (13:35)
[2017-05-08] MEDS ORDERED: DOXY100C PO (13:35)
--- NOTE | 2017-05-08 13:40 | HHI.DCPOC ---
Discharge Care Plan Diagnosis: (1) Abscess of right buttock (2) MRSA cellulitis (3) Pulmonary nodule Goals to Promote Your Health * To prevent worsening of your condition and complications * To maintain your health at the optimal level Directions to Meet Your Goals Take your medications as prescribed Follow your dietary instruction Follow activity as directed Keep your appointments as scheduled Take your immunizations and boosters as scheduled If your symptoms worsen call your PCP, if no PCP go to Urgent Care Center or Emergency Room Smoking is Dangerous to Your Health. Avoid second hand smoke Call the 24-hour hour crisis hotline for domestic abuse at Rodriguez Perez DO May 08, 2017 13:40
--- NOTE | 2017-05-08 13:49 | HHI.DS ---
Discharge Summary Admission Date May 03, 2017 at 16:28 Discharge Date: May 08, 2017 Admitting Diagnosis right buttock cellulitis (1) Cellulitis of buttock, right ICD Code: L03.317 Diagnosis: Principal (2) Pulmonary nodule ICD Code: R91.1 (3) MRSA cellulitis ICD Code: L03.90 Diagnosis: Principal Procedures gluteal abscess drainage Brief History - From Admission patient is a 46 y/o male with no significant past medical history other than occasional folliculitis presented to ER with pain and swelling of the right buttock. he says that it started a small bump few days ago. then it gradually started to get worse. he says that he had ' some antibiotic left over' that he he took for a couple of days with no significant improvement. he reports a fever of 101 at home along with some chills and sweats. he says that he tried to squeeze the area and ' he got a little of blood and whitish fluid out' a couple of days ago. the pain to the area is moderate in intensity but improved with the pain medications that he received in ER. CBC/BMP: 05/07/17 0516 05/07/17 0516 Significant Findings Laboratory Tests Test 05/07/17 05/07/17 05:16 23:40 Red Blood Count 4.03 MIL/MM3 (4.50-5.90) Hemoglobin 11.9 GM/DL (13.0-17.0) Hematocrit 35.6 % (39.0-51.0) Monocytes (%) (Auto) 12.7 % (0.0-8.0) Monocytes # (Auto) 1.1 TH/MM3 (0-0.9) Chloride Level 108 MEQ/L (98-107) Estimat Glomerular Filtration 84 ML/MIN (>89) Rate Albumin 2.6 GM/DL (3.4-5.0) Vancomycin Level Trough 12.0 MCG/ML (5.0-10.0) Imaging Last Impressions Chest X-Ray 05/03/17 1479 Signed Impressions: Service Date/Time: Wednesday, May 03, 2017 13:58 - CONCLUSION: 1. No infiltrate. 2. Small nodule right upper lung. CT chest recommended as outpatient. Ethan Murry MD Pelvis CT 05/03/17 0000 Signed Impressions: Service Date/Time: Wednesday, May 03, 2017 15:40 - CONCLUSION: Abnormal inflammatory changes and skin thickening along the right gluteal cleft and in the adjacent subcutaneous fat of the perineum. No drainable fluid collection is present. The inflammatory changes extend towards the anus but no definite connection is identified. Chepe Cormier MD PE at Discharge GENERAL: This is a well-nourished, well-developed patient, in no apparent distress. HEENT: NC, AT. CARDIOVASCULAR: Regular rate and regular rhythm without murmurs, gallops, or rubs. RESPIRATORY: Clear to auscultation. Breath sounds equal bilaterally. No wheezes , rales, or rhonchi. GASTROINTESTINAL: Abdomen soft, non-tender, nondistended. Normoactive bowel sounds. MUSCULOSKELETAL: Extremities without clubbing, cyanosis, or edema. NEURO: Alert & Oriented x4 to person, place, time, situation. Moves all ext x4. SKIN: Erythema/ tenderness, packing in place. Pt update on day of discharge The pt was looking forward to going home. He wanted to be sure he had pain medication. He has not had a bowel movement yet but has been passing gas. Has been ambulating. Discussed with nursing and case management. Hospital Course Sepsis due to right buttock cellulitis/abscess Imaging showed: Abnormal inflammatory changes and skin thickening along the right gluteal cleft and in the adjacent subcutaneous fat of the perineum; No drainable fluid collection is present; The inflammatory changes extend towards the anus but no definite connection is identified. He was started on IV vancomycin. General surgery was consulted. S/p gluteal abscess drainage at the bedside and then formal I&D was performed. Wound culture with MRSA. He will complete a course of doxycycline per sensitivities. He will have packings done per surgery. Home health care was arranged. He will continue with pain control and will follow up with general surgery as an outpt. Pulmonary nodule Noted on imaging. CT chest recommended as an outpt. He will follow up with his PCP. Pt Condition on Discharge: Good Discharge Disposition: Disch w/ Home Health Serv Discharge Time: > 30 minutes Discharge Instructions DIET: Follow Instructions for: As Tolerated, No Restrictions Activities you can perform: Weight Bearing as Ben Follow up Referrals: PCP Follow-up - 1 Week Surgical - 1 Week with Rodriguez De Paz MD New Orders: CT THORAX W/O CONTRAST (CHEST) New Medications: Doxycycline Hyclate (Doxycycline Hyclate) 100 Mg Cap 100 MG PO BID Infection #12 Ref 0 CAP Ibuprofen (Ibuprofen) 800 Mg Tab 800 MG PO Q8H PRN Pain/Inflammation #30 Ref 0 TAB Oxycodone-Acetaminophen (Percocet) 10-325 mg Tab 1 TAB PO Q6H PRN PAIN #30 Ref 0 TAB Lactobacillus Acidophilus (Acidophilus/l-Sporogenes) 1 Tab Tab 1 TAB PO Q12HR antibiotics #10 TAB Continued Medications: Albuterol 18 GM Inh (Ventolin Hfa 18 GM Inh) 90 Mcg/Act Aer 1 PUFF INH Q4H PRN SHORTNESS OF BREATH #1 Ref 0 INHALER Discontinued Medications: Prednisone (Prednisone) 50 Mg Tab 60 MG PO DAILY Ref 0 TAB Sulfamethoxazole-Trimethoprim (Bactrim DS) 800-160 Mg Tab 1 TAB PO TID Infection Ref 0 TAB Rodriguez Perez DO May 08, 2017 13:49
--- NOTE | 2017-05-08 13:57 | MP ---
cc: RICHAR AUGUST M.D. DATE OF SURGERY: 05/06/2017 PREOPERATIVE DIAGNOSIS Gluteal abscess. POSTOPERATIVE DIAGNOSIS Gluteal abscessx2 PROCEDURE Incision and drainage and packing of gluteal abscess x2 sharp debridement of necrotic subcutaneous tissue and culture. ANESTHESIA General. SURGEON Dr. August INDICATION This is a pleasant 46-year-old gentleman who was found to have cellulitis in his gluteal region and now developed an abscess. He had some drainage, tried to be treated with local drainage, however, has become more extensive and formal debridement is required. DETAILS OF PROCEDURE The patient was taken to the operating room and placed in the supine position. After anesthesia he is placed in the left lateral decubitus position. The area in question had been previously marked. The area is then prepped with Betadine. We anesthetize with Marcaine solution. The original incision is elongated by about 0.5 cm and probed. A fair amount of purulent material returns which is cultured. This communicates more anteriorly away from the anal canal to just underneath the perineum. It connects to another abscess ( number 2) cavity which is opened at the skin. They are about 4 cm. Both of these are vigorously irrigated and sharply debrided necrotic tissue. Hemostasis is assured with the electrocautery device. We then place approximately two feet of Iodoform gauze in each of the open wounds and secure it in place. The patient tolerated the procedure well and had no immediate post-op complications. Richar August MD JDAVIN/KALLIE /1:22 PM /1:45 PM GREGORIO
== END 2017-05-08 15:36 | disposition home or self-care (01) | DRG 854 ==
LOC: PHED 12:59 → PHEDA 16:28 → PH3A 17:52
PROVIDERS: ADMIT Hospitalist; ATTEND Hospitalist
PROC: 0D9QXZZ Drainage of Anus, External Approach (ICD-10-PCS; principal; 2017-05-04)
PROC: 0JB90ZZ Excision of Buttock Subcutaneous Tissue and Fascia, Open Approach (ICD-10-PCS; 2017-05-06)
DX: A41.9 Sepsis, unspecified organism (principal); L02.31 Cutaneous abscess of buttock; L03.317 Cellulitis of buttock; B95.62 Methicillin resistant Staphylococcus aureus infection as the cause of diseases classified elsewhere; J45.909 Unspecified asthma, uncomplicated; R91.1 Solitary pulmonary nodule; F17.200 Nicotine dependence, unspecified, uncomplicated; Z87.442 Personal history of urinary calculi
CPT/HCPCS: 71010; 72193; 80053; 80202; 81001; 82565; 83605; 85025; 85027; 85610; 85730; 86403; 87015; 87040; 87070; 87102; 87116; 87147; 87186; 87205; 87206; 93005; 96365; 96366; 96375; J0131; J1170; J2250; J2270; J2405; J2543; J3010; J3370; J7030; J7040; J7050; J7613; Q9967